=== PATIENT | female | born 1955 | race African-American/Black ===

== ENCOUNTER 2020-05-30 19:51 | Inpatient (IN) | payer BC ==
[~2020-05-30] VITALS: Ht 157.5 cm; Wt 70.8 kg
[2020-05-30] MEDS ORDERED: LORAZEPAM 2MG/ML CPJ ONE (20:04)
[2020-05-30] MEDS ORDERED: PROPOFOL 10MG/ML 100ML 100 ML IV PRN (20:15)
[2020-05-30] MEDS ORDERED: LORAZEPAM 2MG/ML CPJ IV ONE (20:15)
[2020-05-30 20:44] LABS: BASOPHILS % 0.6 % (0.0-2.0); CLARITY URINE CLEAR (CLEAR); COLOR URINE YELLOW (YELLOW); EOSINOPHILS % 0.1 % (0.0-5.0); HEMATOCRIT. 44.1 % (36.0-48.0); HEMOGLOBIN. 14.3 g/dL (12.0-16.0); KETONES URINE TRACE (NEGATIVE); LEUKOCYTE ESTERASE URINE NEGATIVE (NEGATIVE); LYMPHOCYTES % 33.5 % (20.0-50.0); MEAN CORPUSCULAR HEMOGLOBIN 30.7 pg (28.0-32.0); MEAN CORPUSCULAR VOLUME 94.8 fL (81.0-99.0); MEAN PLATELET VOLUME 9.7 fl (7.4-10.4); MONOCYTES % 5.1 % (2.0-8.0); NEUTROPHILS % 60.7 % (40.0-76.0); NITRITE URINE NEGATIVE (NEGATIVE); OCCULT BLOOD URINE NEGATIVE (NEGATIVE); PLATELET 258 x1000/uL (130-400); PROTEIN URINE 2+ (NEGATIVE); RED BLOOD CELL COUNT 4.65 mill/uL (4.2-5.4); SPECIFIC GRAVITY URINE 1.035 (1.005-1.030); UROBILINOGEN URINE 0.2 E.U./dL (0.2-1.0)
[2020-05-30 20:50] LABS: CHLORIDE 104 mEq/L (98-107)
[2020-05-30 20:53] LABS: ETHANOL BLOOD < 10 mg/dL
[2020-05-30 20:56] LABS: *AMPHETAMINES SCREEN URINE NEGATIVE (NEGATIVE); *BARBITURATES SCREEN URINE NEGATIVE (NEGATIVE); *BENZODIAZEPINES SCREEN URINE NEGATIVE (NEGATIVE); *COCAINE SCREEN URINE NEGATIVE (NEGATIVE); CANNABINOID URINE SCREEN NEGATIVE (NEGATIVE)
[2020-05-30 20:57] LABS: METHADONE URINE SCREEN NEGATIVE (NEGATIVE); OPIATES URINE SCREEN NEGATIVE (NEGATIVE); PHENCYCLIDINE URINE SCREEN NEGATIVE (NEGATIVE)
[2020-05-30] MEDS ORDERED: VANCOMYCIN 1 G PREMIX 200 ML IV SCH (22:30)
[2020-05-30] MEDS: ACYCLOVIR INJ 500 MG in DEXT 5% WATER 100 ML IV SCH (22:30)
[2020-05-30] MEDS ORDERED: CEFTRIAXONE 2 G PREMIX 50 ML IV ONE (22:30)
[2020-05-31] VITALS (53 sets, daily range): BP systolic 112–160; BP diastolic 65–92
[2020-05-31 00:32] LABS: BG BASE EXCESS -1.3 mmol/L (-2.0-2.0); BG CARBOXYHEMOGLOBIN 0.2 % (0.5-1.5); BG DEOXYHEMOGLOBIN 0.2 % (0.0-5.0); BG FRACTION INSPIRED OXYGEN 100; BG HCO3 ACT 18.4 mmol/L (22.0-26.0); BG OXYGEN SATURATION 99.8 % (92.0-98.5); BG OXYHEMOGLOBIN 99.6 % (94.0-97.0); BG PCO2 20.3 mmHg (35.0-45.0); BG PH 7.575 (7.350-7.450); BG PO2 331.9 mmHg (75.0-100.0); BG SAMPLE SITE RIGHT RADIAL; BG TIDAL VOLUME(mL) 550 mL; BG TOTAL HEMOGLOBIN 13.7 g/dL (12.0-18.0); BG VENT MODE VENT - A/C; BG VENT RATE 24 set
[2020-05-31] MEDS ORDERED: LEVETIRACETAM 500MG PREMIX 100 ML IV SCH (06:00)
[2020-05-31] MEDS: ACYCLOVIR INJ 500 MG in DEXT 5% WATER 100 ML IV SCH (08:08)
[2020-05-31] MEDS: HEPARIN 5000 UNITS/ML VIAL SUBCUT SCH ×2 (09:00→21:07)
[2020-05-31] MEDS ORDERED: MIDAZOLAM HCL 100 MG in DEXT 5% WATER 80 ML IV PRN (09:15)
[2020-05-31] MEDS: FENTANYL CITRATE/PF 1,000 MCG in SODIUM CHLORIDE 0.9% 80 ML IV PRN (09:30)
[2020-05-31] MEDS ORDERED: ACETAMINOPHEN 325MG TABLET PO PRN (09:30)
[2020-05-31] MEDS ORDERED: ONDANSETRON HCL 4MG/2ML INJ IV PRN (09:30)
[2020-05-31 09:42] LABS: BASOPHILS % 0.3 % (0.0-2.0); EOSINOPHILS % 0.7 % (0.0-5.0); HEMATOCRIT. 40.9 % (36.0-48.0); HEMOGLOBIN. 13.8 g/dL (12.0-16.0); LYMPHOCYTES % 20.3 % (20.0-50.0); MEAN CORPUSCULAR HEMOGLOBIN 30.5 pg (28.0-32.0); MEAN CORPUSCULAR VOLUME 90.1 fL (81.0-99.0); MEAN PLATELET VOLUME 9.3 fl (7.4-10.4); NEUTROPHILS % 71.7 % (40.0-76.0); PLATELET 213 x1000/uL (130-400); RED BLOOD CELL COUNT 4.53 mill/uL (4.2-5.4); RED CELL DISTRIBUTION WIDTH 15.7 % (11.6-14.6)
[2020-05-31 09:43] LABS: CHLORIDE 103 mEq/L (98-107)
[2020-05-31] MEDS: LEVOFLOXACIN 500MG PREMIX 100 ML IV SCH (10:00)
[2020-05-31] MEDS ORDERED: IPRATROPIUM/ALBUTEROL 0.5-3(2.5)MG/3ML NEB HHN PRN (13:15)
[2020-05-31] MEDS: METRONIDAZOLE 500MG TABLET PO SCH ×2 (14:14→21:06)
[2020-05-31] MEDS: METHYLPREDNISOLONE SOD SUCC 40 MG/ML VIAL IV SCH ×2 (14:14→21:06)
[2020-05-31] MEDS: PROPOFOL 10MG/ML 100ML 100 ML IV PRN ×3 (16:55→23:47)
[2020-05-31] MEDS: LEVETIRACETAM 500MG PREMIX 100 ML IV SCH (21:06)
[2020-05-31] MEDS: IPRATROPIUM/ALBUTEROL 0.5-3(2.5)MG/3ML NEB HHN SCH (21:12)
[2020-06-01] VITALS (88 sets, daily range): BP systolic 49–168; BP diastolic 17–113
[2020-06-01] MEDS: IPRATROPIUM/ALBUTEROL 0.5-3(2.5)MG/3ML NEB HHN SCH ×4 (00:53→21:01)
[2020-06-01] MEDS: METRONIDAZOLE 500MG TABLET PO SCH ×3 (05:20→22:05)
[2020-06-01] MEDS: METHYLPREDNISOLONE SOD SUCC 40 MG/ML VIAL IV SCH ×3 (05:20→22:05)
[2020-06-01] MEDS: FENTANYL CITRATE/PF 1,000 MCG in SODIUM CHLORIDE 0.9% 80 ML IV PRN (05:43)
[2020-06-01 05:48] LABS: HEMATOCRIT. 42.7 % (36.0-48.0); HEMOGLOBIN. 14.1 g/dL (12.0-16.0); MEAN CORPUSCULAR HEMOGLOBIN 30.5 pg (28.0-32.0); MEAN CORPUSCULAR VOLUME 92.5 fL (81.0-99.0); PLATELET 183 x1000/uL (130-400); RED BLOOD CELL COUNT 4.61 mill/uL (4.2-5.4); RED CELL DISTRIBUTION WIDTH 15.8 % (11.6-14.6)
[2020-06-01 05:57] LABS: CHLORIDE 103 mEq/L (98-107)
[2020-06-01] MEDS: PROPOFOL 10MG/ML 100ML 100 ML IV PRN (08:27)
[2020-06-01] MEDS: HEPARIN 5000 UNITS/ML VIAL SUBCUT SCH ×2 (10:28→22:07)
[2020-06-01] MEDS: LEVOFLOXACIN 500MG PREMIX 100 ML IV SCH (10:28)
[2020-06-01] MEDS: LEVETIRACETAM 500MG PREMIX 100 ML IV SCH ×2 (10:28→22:04)
[2020-06-01] MEDS ORDERED: POTASSIUM CHLORIDE 20MEQ/PACKET PO NR (12:00)
[2020-06-01 12:13] LABS: PLATELET ESTIMATE NORMAL
[2020-06-01 12:37] LABS: BG BASE EXCESS -5.8 mmol/L (-2.0-2.0); BG CARBOXYHEMOGLOBIN 0.6 % (0.5-1.5); BG DEOXYHEMOGLOBIN 0.8 % (0.0-5.0); BG FRACTION INSPIRED OXYGEN 50; BG HCO3 ACT 19.1 mmol/L (22.0-26.0); BG METHEMOGLOBIN 0.6 % (0.0-1.5); BG OXYGEN SATURATION 99.2 % (92.0-98.5); BG PCO2 35.8 mmHg (35.0-45.0); BG PH 7.345 (7.350-7.450); BG PO2 190.8 mmHg (75.0-100.0); BG PRESSURE SUPPORT 8; BG SAMPLE SITE RIGHT BRACHIAL; BG TOTAL HEMOGLOBIN 14.6 g/dL (12.0-18.0); BG VENT MODE VENT - CPAP
[2020-06-01] MEDS ORDERED: POTASSIUM CHLORIDE INJ 40 MEQ in DEXT 5% WATER 250 ML IV NR (16:00)
[2020-06-02] VITALS (60 sets, daily range): BP systolic 94–149; BP diastolic 44–88
[2020-06-02] MEDS: IPRATROPIUM/ALBUTEROL 0.5-3(2.5)MG/3ML NEB HHN SCH ×4 (01:25→20:20)
[2020-06-02 05:54] LABS: CHLORIDE 107 mEq/L (98-107)
[2020-06-02] MEDS: METHYLPREDNISOLONE SOD SUCC 40 MG/ML VIAL IV SCH ×2 (06:00→13:43)
[2020-06-02] MEDS: METRONIDAZOLE 500MG TABLET PO SCH ×3 (06:00→20:32)
[2020-06-02 06:11] LABS: HEMATOCRIT. 39.8 % (36.0-48.0); HEMOGLOBIN. 13.1 g/dL (12.0-16.0); MEAN CORPUSCULAR HEMOGLOBIN 30.4 pg (28.0-32.0); MEAN CORPUSCULAR VOLUME 92.4 fL (81.0-99.0); MEAN PLATELET VOLUME 9.3 fl (7.4-10.4); PLATELET 189 x1000/uL (130-400); RED CELL DISTRIBUTION WIDTH 16.2 % (11.6-14.6)
[2020-06-02] MEDS: LEVOFLOXACIN 500MG PREMIX 100 ML IV SCH (09:30)
[2020-06-02] MEDS: LEVETIRACETAM 500MG PREMIX 100 ML IV SCH (09:30)
[2020-06-02] MEDS: HEPARIN 5000 UNITS/ML VIAL SUBCUT SCH ×2 (09:30→20:32)
[2020-06-02 10:08] LABS: PLATELET ESTIMATE NORMAL
[2020-06-02] MEDS: LEVETIRACETAM 500MG TABLET PO SCH (20:34)
[2020-06-03] VITALS (10 sets, daily range): BP systolic 99–140; BP diastolic 51–81
[2020-06-03] MEDS: IPRATROPIUM/ALBUTEROL 0.5-3(2.5)MG/3ML NEB HHN SCH ×3 (02:15→14:17)
[2020-06-03] MEDS: METRONIDAZOLE 500MG TABLET PO SCH ×2 (05:26→14:01)
[2020-06-03 06:42] LABS: HEMOGLOBIN. 12.1 g/dL (12.0-16.0); MEAN CORPUSCULAR HEMOGLOBIN 30.9 pg (28.0-32.0); MEAN CORPUSCULAR VOLUME 92.1 fL (81.0-99.0); MEAN PLATELET VOLUME 9.3 fl (7.4-10.4); PLATELET 204 x1000/uL (130-400); RED BLOOD CELL COUNT 3.91 mill/uL (4.2-5.4); RED CELL DISTRIBUTION WIDTH 15.4 % (11.6-14.6)
[2020-06-03 07:03] LABS: CHLORIDE 105 mEq/L (98-107)
[2020-06-03] MEDS ORDERED: METHYLPREDNISOLONE SOD SUCC 40 MG/ML VIAL IV SCH (09:00)
[2020-06-03] MEDS: LEVETIRACETAM 500MG TABLET PO SCH (09:11)
[2020-06-03] MEDS: LEVOFLOXACIN 500MG PREMIX 100 ML IV SCH (09:11)
[2020-06-03] MEDS: HEPARIN 5000 UNITS/ML VIAL SUBCUT SCH (09:14)
[2020-06-03] MEDS ORDERED: TRAZ-251 MT (14:11)
[2020-06-03] MEDS ORDERED: KEPP500 PO (14:11)
[2020-06-03] MEDS ORDERED: METO25TA6 PO (14:12)
[2020-06-03] MEDS ORDERED: METOPROLOL TARTRATE 25MG TABLET PO SCH ×2 (14:15→21:00)
[2020-06-03 16:47] LABS: PLATELET ESTIMATE NORMAL
== END 2020-06-03 17:05 | disposition home or self-care (01) | DRG 871 ==
LOC: ER 19:51 → MICUSO 21:26 → MICUNO 05-31 11:18 → 5EST 06-02 21:30
PROVIDERS: ADMIT Internal Medicine; ATTEND Internal Medicine
PROC: 5A1945Z Respiratory Ventilation, 24-96 Consecutive Hours (ICD-10-PCS; principal; 2020-05-30)
PROC: 0BH17EZ Insertion of Endotracheal Airway into Trachea, Via Natural or Artificial Opening (ICD-10-PCS; 2020-05-30)
DX: A41.9 Sepsis, unspecified organism (principal); J96.01 Acute respiratory failure with hypoxia; J69.0 Pneumonitis due to inhalation of food and vomit; D86.9 Sarcoidosis, unspecified; G40.901 Epilepsy, unspecified, not intractable, with status epilepticus; I10 Essential (primary) hypertension; E87.6 Hypokalemia; G47.00 Insomnia, unspecified; I49.3 Ventricular premature depolarization; G43.909 Migraine, unspecified, not intractable, without status migrainosus; D86.89 Sarcoidosis of other sites; J45.909 Unspecified asthma, uncomplicated; N95.1 Menopausal and female climacteric states; Z79.899 Other long term (current) drug therapy
CPT/HCPCS: 36415; 36600; 71045; 80053; 80305; 80320; 81003; 82164; 82375; 82805; 82962; 83605; 83735; 83880; 84443; 84478; 84484; 85025; 87070; 87077; 93005; 93306; 94002; 94003; 94640; 96365; 97162; 97166; 99285; J0133; J0696; J1644; J1953; J1956; J2060; J2704; J2920; J3010; J3370; J3480; J7050; J7060; G0480

== ENCOUNTER 2020-06-22 01:25 | Inpatient (IN) | payer BC ==
[~2020-06-22] VITALS: Ht 165.1 cm; Wt 76.9 kg
[~2020-06-22 01:25] MED LIST: KEPP500 PO; METO25TA6 PO; TRAZ-251 MT
[2020-06-22] MEDS ORDERED: ETOMIDATE 2MG/ML 10ML VIAL IV ONE ×2 (01:41→02:15)
[2020-06-22] MEDS ORDERED: VECURONIUM BROMIDE 10 MG/VIAL IV ONE (01:41)
[2020-06-22] MEDS ORDERED: ONDANSETRON HCL 4MG/2ML INJ IV STA (02:14)
[2020-06-22] MEDS ORDERED: ACETAMINOPHEN 650MG SUPP PR STA (02:14)
[2020-06-22] MEDS ORDERED: MORPHINE SULFATE 4 MG/ML CPJ (NOT FOR IM USE) IV STA (02:14)
[2020-06-22] MEDS ORDERED: SODIUM CHLORIDE 0.9% 1000ML BAG (SEPSIS BOLUS) IV ONE (02:15)
[2020-06-22] MEDS ORDERED: VANCOMYCIN 1 G PREMIX 200 ML IV ONE (02:15)
[2020-06-22] MEDS ORDERED: LEVETIRACETAM 500MG PREMIX 100 ML IV ONE (02:15)
[2020-06-22] MEDS ORDERED: LORAZEPAM 2MG/ML CPJ IV ONE (02:15)
[2020-06-22] MEDS ORDERED: PROPOFOL 10MG/ML 100ML 100 ML IV ONE ×2 (02:15→07:51)
[2020-06-22] MEDS ORDERED: PIPERACILLIN/TAZ 3.375G PREMIX 50 ML IV ONE (02:15)
[2020-06-22 03:04] LABS: HEMATOCRIT. 44.7 % (36.0-48.0); MEAN CORPUSCULAR HEMOGLOBIN 30.5 pg (28.0-32.0); PLATELET 166 x1000/uL (130-400); RED CELL DISTRIBUTION WIDTH 14.7 % (11.6-14.6)
[2020-06-22 03:10] LABS: PROTHROMBIN TIME 10.6 sec (9.6-11.0)
[2020-06-22 03:11] LABS: CLARITY URINE CLEAR (CLEAR); COLOR URINE YELLOW (YELLOW); KETONES URINE TRACE (NEGATIVE); LEUKOCYTE ESTERASE URINE NEGATIVE (NEGATIVE); NITRITE URINE NEGATIVE (NEGATIVE); OCCULT BLOOD URINE NEGATIVE (NEGATIVE); PROTEIN URINE NEGATIVE (NEGATIVE); SPECIFIC GRAVITY URINE 1.031 (1.005-1.030); UROBILINOGEN URINE 0.2 E.U./dL (0.2-1.0)
[2020-06-22 03:17] LABS: CHLORIDE 89 mEq/L (98-107)
[2020-06-22 03:25] LABS: CANNABINOID URINE SCREEN NEGATIVE (NEGATIVE); METHADONE URINE SCREEN NEGATIVE (NEGATIVE); OPIATES URINE SCREEN NEGATIVE (NEGATIVE); PHENCYCLIDINE URINE SCREEN NEGATIVE (NEGATIVE)
[2020-06-22 03:27] LABS: *AMPHETAMINES SCREEN URINE NEGATIVE (NEGATIVE); *BARBITURATES SCREEN URINE NEGATIVE (NEGATIVE); *BENZODIAZEPINES SCREEN URINE PRESUMTIVE POSITIVE (NEGATIVE); *COCAINE SCREEN URINE NEGATIVE (NEGATIVE)
[2020-06-22 03:53] LABS: BG CARBOXYHEMOGLOBIN 0.3 % (0.5-1.5); BG DEOXYHEMOGLOBIN 0.6 % (0.0-5.0); BG FRACTION INSPIRED OXYGEN 100; BG HCO3 ACT 17.5 mmol/L (22.0-26.0); BG METHEMOGLOBIN 0.5 % (0.0-1.5); BG OXYGEN SATURATION 99.4 % (92.0-98.5); BG OXYHEMOGLOBIN 98.6 % (94.0-97.0); BG PCO2 32.7 mmHg (35.0-45.0); BG PH 7.347 (7.350-7.450); BG PIP 24 cmH2O; BG PO2 347.1 mmHg (75.0-100.0); BG SAMPLE SITE RIGHT BRACHIAL; BG TIDAL VOLUME(mL) 400 mL; BG VENT MODE VENT - A/C; BG VENT RATE 16 set
[2020-06-22] MEDS ORDERED: SODIUM CHLORIDE 0.9% 1,000 ML IV ONE (03:56)
[2020-06-22] MEDS ORDERED: INSULIN REGULAR (DRIP) 100 UNITS in SODIUM CHLORIDE 0.9% 99 ML IV SCH (04:00)
[2020-06-22 05:09] LABS: PLATELET ESTIMATE NORMAL
[2020-06-22] MEDS: SODIUM CHLORIDE 0.45% 1,000 ML IV SCH ×2 (07:40→17:40)
[2020-06-22] MEDS ORDERED: DIPHENHYDRAMINE 50MG/ML VIAL IV PRN (07:45)
[2020-06-22] MEDS ORDERED: GUAIFENESIN 200MG/10ML SUGAR FREE UDC PO PRN (07:45)
[2020-06-22] MEDS ORDERED: LORAZEPAM 2MG/ML CPJ IV PRN (07:45)
[2020-06-22] MEDS ORDERED: ONDANSETRON HCL 4MG/2ML INJ IV PRN (07:45)
[2020-06-22] MEDS ORDERED: HYDRALAZINE 20MG/ML VIAL IV PRN (07:45)
[2020-06-22] MEDS ORDERED: IPRATROPIUM/ALBUTEROL 0.5-3(2.5)MG/3ML NEB HHN PRN (07:45)
[2020-06-22] MEDS ORDERED: DOCUSATE SODIUM 100MG CAPSULE PO PRN (07:45)
[2020-06-22] MEDS ORDERED: HYDROCODONE/ACETAMINOPHEN 10/325MG TABLET PO PRN (07:45)
[2020-06-22] MEDS ORDERED: CLONIDINE 0.1MG TABLET PO PRN (07:45)
[2020-06-22] MEDS ORDERED: MORPHINE SULFATE 2 MG/ML CPJ (NOT FOR IM USE) IV PRN (07:45)
[2020-06-22] MEDS ORDERED: DEXTROSE 50% WATER 50ML SYRINGE IV PRN ×2 (07:45)
[2020-06-22] MEDS ORDERED: ACETAMINOPHEN 325MG TABLET PO PRN (07:45)
[2020-06-22] MEDS ORDERED: MAGNESIUM/ALUMINUM HYDROXIDE/SIMETHICONE 30ML UDC PO PRN (07:45)
[2020-06-22] MEDS: BLOOD SUGAR DIAGNOSTIC STRIP TEST SCH ×10 (09:00→18:00)
[2020-06-22] MEDS ORDERED: LEVOFLOXACIN 500MG PREMIX 100 ML IV NR (09:00)
[2020-06-22] MEDS: ENOXAPARIN 40MG/0.4ML SYR SUBCUT SCH (09:20)
[2020-06-22 09:27] LABS: CHLORIDE 111 mEq/L (98-107)
[2020-06-22] MEDS ORDERED: POTASSIUM CHLORIDE INJ 40 MEQ in DEXT 5% WATER 250 ML IV ONE (10:00)
[2020-06-22] MEDS: PROPOFOL 10MG/ML 100ML 100 ML IV PRN (13:58)
[2020-06-22] MEDS: SODIUM CHLORIDE 0.9% INJ 3ML FLUSH IVF SCH (14:00)
[2020-06-22] MEDS ORDERED: KCL 20MEQ/100ML PREMIX 100 ML IV NR (14:00)
[2020-06-22] MEDS: PIPERACILLIN/TAZ 3.375G PREMIX 50 ML IV SCH ×2 (17:00→23:17)
[2020-06-22] MEDS ORDERED: LEVETIRACETAM 500MG PREMIX 100 ML IV SCH (21:00)
[2020-06-22] MEDS ORDERED: METRONIDAZOLE 500MG TABLET PO SCH (22:00)
[2020-06-23] VITALS (56 sets, daily range): BP systolic 95–156; BP diastolic 58–86
[2020-06-23] MEDS ORDERED: POTASSIUM CHLORIDE INJ 40 MEQ in DEXT 5% WATER 500 ML IV SCH (00:15)
[2020-06-23] MEDS: IPRATROPIUM/ALBUTEROL 0.5-3(2.5)MG/3ML NEB HHN SCH ×3 (01:45→20:16)
[2020-06-23 04:31] LABS: CHLORIDE 115 mEq/L (98-107)
[2020-06-23 04:34] LABS: BASOPHILS % 0.4 % (0.0-2.0); EOSINOPHILS % 0.2 % (0.0-5.0); HEMATOCRIT. 39.6 % (36.0-48.0); HEMOGLOBIN. 13.1 g/dL (12.0-16.0); LYMPHOCYTES % 16.1 % (20.0-50.0); MEAN CORPUSCULAR HEMOGLOBIN 30.3 pg (28.0-32.0); MEAN CORPUSCULAR VOLUME 91.3 fL (81.0-99.0); MEAN PLATELET VOLUME 10.2 fl (7.4-10.4); NEUTROPHILS % 76.3 % (40.0-76.0); PLATELET 136 x1000/uL (130-400); RED BLOOD CELL COUNT 4.33 mill/uL (4.2-5.4); RED CELL DISTRIBUTION WIDTH 15.2 % (11.6-14.6)
[2020-06-23 04:40] LABS: CREATINE KINASE 96 IU/L (26-192)
[2020-06-23] MEDS: BLOOD SUGAR DIAGNOSTIC STRIP TEST SCH ×4 (07:53→21:41)
[2020-06-23] MEDS: SODIUM CHLORIDE 0.9% INJ 3ML FLUSH IVF SCH ×4 (07:53→21:11)
[2020-06-23] MEDS ORDERED: DEXTROSE 50% WATER 50ML SYRINGE IV PRN (08:00)
[2020-06-23] MEDS: INSULIN LISPRO 100 UNITS/ML SUBCUT SCH ×4 (08:20→21:39)
[2020-06-23] MEDS ORDERED: LEVOFLOXACIN 250MG PREMIX 50 ML IV SCH (09:00)
[2020-06-23 09:14] LABS: BG BASE EXCESS -1.3 mmol/L (-2.0-2.0); BG CARBOXYHEMOGLOBIN 0.3 % (0.5-1.5); BG DEOXYHEMOGLOBIN 0.9 % (0.0-5.0); BG FRACTION INSPIRED OXYGEN 40; BG HCO3 ACT 21.5 mmol/L (22.0-26.0); BG METHEMOGLOBIN 0.3 % (0.0-1.5); BG OXYGEN SATURATION 99.1 % (92.0-98.5); BG OXYHEMOGLOBIN 98.5 % (94.0-97.0); BG PCO2 30.9 mmHg (35.0-45.0); BG PH 7.461 (7.350-7.450); BG PO2 177.3 mmHg (75.0-100.0); BG SAMPLE SITE RIGHT RADIAL; BG TIDAL VOLUME(mL) 450 mL; BG TOTAL HEMOGLOBIN 13.4 g/dL (12.0-18.0); BG VENT MODE VENT - A/C; BG VENT RATE 14 set
[2020-06-23] MEDS: PIPERACILLIN/TAZOBACTAM 3.375 G in DEXT 5% WATER 100 ML IV SCH ×4 (09:25→23:02)
[2020-06-23] MEDS: ENOXAPARIN 40MG/0.4ML SYR SUBCUT SCH (09:26)
[2020-06-23] MEDS: SODIUM CHLORIDE 0.9% 1,000 ML IV SCH ×2 (09:27→18:03)
[2020-06-23] MEDS: PROPOFOL 10MG/ML 100ML 100 ML IV PRN ×4 (09:27→21:17)
[2020-06-23] MEDS ORDERED: LEVETIRACETAM 500MG PREMIX 100 ML IV SCH (12:00)
[2020-06-23] MEDS: PANTOPRAZOLE SODIUM 40 MG/VIAL IV SCH (14:14)
[2020-06-23] MEDS: LAMOTRIGINE 25MG TABLET PO SCH (15:52)
[2020-06-23] MEDS: LEVETIRACETAM 1,000 MG in SODIUM CHLORIDE 0.9% 100 ML IV SCH (21:10)
[2020-06-24] VITALS (80 sets, daily range): BP systolic 113–164; BP diastolic 54–97
[2020-06-24] MEDS ORDERED: INSULIN REGULAR (DRIP) 100 UNITS in SODIUM CHLORIDE 0.9% 99 ML IV SCH (00:15)
[2020-06-24] MEDS: IPRATROPIUM/ALBUTEROL 0.5-3(2.5)MG/3ML NEB HHN SCH ×4 (02:06→21:20)
[2020-06-24] MEDS: PROPOFOL 10MG/ML 100ML 100 ML IV PRN (03:35)
[2020-06-24] MEDS: PIPERACILLIN/TAZOBACTAM 3.375 G in DEXT 5% WATER 100 ML IV SCH ×2 (05:10→12:18)
[2020-06-24] MEDS: SODIUM CHLORIDE 0.9% INJ 3ML FLUSH IVF SCH ×3 (05:10→21:11)
[2020-06-24] MEDS: SODIUM CHLORIDE 0.9% 1,000 ML IV SCH ×2 (05:10→13:52)
[2020-06-24 06:06] LABS: BASOPHILS % 0.2 % (0.0-2.0); EOSINOPHILS % 0.6 % (0.0-5.0); HEMATOCRIT. 34.4 % (36.0-48.0); HEMOGLOBIN. 11.5 g/dL (12.0-16.0); LYMPHOCYTES % 12.1 % (20.0-50.0); MEAN CORPUSCULAR HEMOGLOBIN 30.8 pg (28.0-32.0); MEAN CORPUSCULAR VOLUME 91.9 fL (81.0-99.0); MEAN PLATELET VOLUME 10.2 fl (7.4-10.4); MONOCYTES % 6.9 % (2.0-8.0); NEUTROPHILS % 80.2 % (40.0-76.0); PLATELET 104 x1000/uL (130-400); RED BLOOD CELL COUNT 3.74 mill/uL (4.2-5.4); RED CELL DISTRIBUTION WIDTH 15.4 % (11.6-14.6)
[2020-06-24 06:10] LABS: CHLORIDE 115 mEq/L (98-107)
[2020-06-24] MEDS: BLOOD SUGAR DIAGNOSTIC STRIP TEST SCH ×4 (07:56→21:11)
[2020-06-24] MEDS ORDERED: POTASSIUM CHLORIDE INJ 40 MEQ in DEXT 5% WATER 250 ML IV ONE (08:00)
[2020-06-24 08:27] LABS: BG BASE EXCESS -5.1 mmol/L (-2.0-2.0); BG CARBOXYHEMOGLOBIN 0.4 % (0.5-1.5); BG DEOXYHEMOGLOBIN 0.7 % (0.0-5.0); BG FRACTION INSPIRED OXYGEN 40; BG HCO3 ACT 18.5 mmol/L (22.0-26.0); BG METHEMOGLOBIN 0.3 % (0.0-1.5); BG OXYGEN SATURATION 99.3 % (92.0-98.5); BG OXYHEMOGLOBIN 98.6 % (94.0-97.0); BG PCO2 30.3 mmHg (35.0-45.0); BG PH 7.404 (7.350-7.450); BG PO2 243.1 mmHg (75.0-100.0); BG SAMPLE SITE RIGHT RADIAL; BG TIDAL VOLUME(mL) 450 mL; BG TOTAL HEMOGLOBIN 12.2 g/dL (12.0-18.0); BG VENT MODE VENT - A/C; BG VENT RATE 14 set
[2020-06-24] MEDS ORDERED: POTASSIUM CHLORIDE INJ 40 MEQ in DEXT 5% WATER 250 ML IV NR (09:00)
[2020-06-24] MEDS: ENOXAPARIN 40MG/0.4ML SYR SUBCUT SCH (10:01)
[2020-06-24] MEDS: LAMOTRIGINE 25MG TABLET PO SCH (10:01)
[2020-06-24] MEDS: PANTOPRAZOLE SODIUM 40 MG/VIAL IV SCH (10:01)
[2020-06-24] MEDS: INSULIN LISPRO 100 UNITS/ML SUBCUT SCH ×4 (10:04→21:26)
[2020-06-24] MEDS: LEVETIRACETAM 1,000 MG in SODIUM CHLORIDE 0.9% 100 ML IV SCH ×2 (10:22→21:11)
[2020-06-24 11:36] LABS: BG CARBOXYHEMOGLOBIN 0.3 % (0.5-1.5); BG DEOXYHEMOGLOBIN 1.2 % (0.0-5.0); BG FRACTION INSPIRED OXYGEN 40; BG HCO3 ACT 20.1 mmol/L (22.0-26.0); BG METHEMOGLOBIN 0.3 % (0.0-1.5); BG OXYGEN SATURATION 98.8 % (92.0-98.5); BG OXYHEMOGLOBIN 98.2 % (94.0-97.0); BG PCO2 37.7 mmHg (35.0-45.0); BG PH 7.345 (7.350-7.450); BG PO2 155.9 mmHg (75.0-100.0); BG PRESSURE SUPPORT 8; BG SAMPLE SITE RIGHT RADIAL; BG TOTAL HEMOGLOBIN 12.2 g/dL (12.0-18.0); BG VENT MODE VENT - CPAP
[2020-06-24] MEDS ORDERED: RACEPINEPHRINE 2.25% 0.5ML NEB VIAL HHN PRN (14:00)
[2020-06-25] VITALS (62 sets, daily range): BP systolic 103–175; BP diastolic 37–151
[2020-06-25] MEDS: SODIUM CHLORIDE 0.9% 1,000 ML IV SCH ×3 (01:22→20:35)
[2020-06-25] MEDS: IPRATROPIUM/ALBUTEROL 0.5-3(2.5)MG/3ML NEB HHN SCH ×4 (03:25→20:28)
[2020-06-25] MEDS: SODIUM CHLORIDE 0.9% INJ 3ML FLUSH IVF SCH ×3 (05:03→22:04)
[2020-06-25 06:04] LABS: BASOPHILS % 0.2 % (0.0-2.0); EOSINOPHILS % 1.3 % (0.0-5.0); HEMATOCRIT. 33.8 % (36.0-48.0); HEMOGLOBIN. 11.4 g/dL (12.0-16.0); LYMPHOCYTES % 16.7 % (20.0-50.0); MEAN CORPUSCULAR HEMOGLOBIN 31.1 pg (28.0-32.0); MEAN CORPUSCULAR VOLUME 92.3 fL (81.0-99.0); MEAN PLATELET VOLUME 10.5 fl (7.4-10.4); MONOCYTES % 6.9 % (2.0-8.0); NEUTROPHILS % 74.9 % (40.0-76.0); PLATELET 95 x1000/uL (130-400); RED BLOOD CELL COUNT 3.67 mill/uL (4.2-5.4); RED CELL DISTRIBUTION WIDTH 15.4 % (11.6-14.6)
[2020-06-25 06:14] LABS: CHLORIDE 119 mEq/L (98-107)
[2020-06-25] MEDS: BLOOD SUGAR DIAGNOSTIC STRIP TEST SCH ×4 (08:27→20:35)
[2020-06-25] MEDS: LAMOTRIGINE 25MG TABLET PO SCH (08:41)
[2020-06-25] MEDS: PANTOPRAZOLE SODIUM 40 MG/VIAL IV SCH (08:41)
[2020-06-25] MEDS: INSULIN LISPRO 100 UNITS/ML SUBCUT SCH ×4 (08:42→20:48)
[2020-06-25] MEDS: ENOXAPARIN 40MG/0.4ML SYR SUBCUT SCH (09:00)
[2020-06-25] MEDS: LEVETIRACETAM 1,000 MG in SODIUM CHLORIDE 0.9% 100 ML IV SCH ×2 (10:35→22:03)
[2020-06-26] VITALS (15 sets, daily range): BP systolic 115–152; BP diastolic 50–87
[2020-06-26] MEDS: IPRATROPIUM/ALBUTEROL 0.5-3(2.5)MG/3ML NEB HHN SCH ×3 (02:38→16:32)
[2020-06-26] MEDS: SODIUM CHLORIDE 0.9% INJ 3ML FLUSH IVF SCH ×2 (05:38→14:00)
[2020-06-26] MEDS: SODIUM CHLORIDE 0.9% 1,000 ML IV SCH (06:02)
[2020-06-26 06:11] LABS: HEMATOCRIT. 30.7 % (36.0-48.0); HEMOGLOBIN. 10.5 g/dL (12.0-16.0); MEAN CORPUSCULAR VOLUME 90.8 fL (81.0-99.0); MEAN PLATELET VOLUME 9.8 fl (7.4-10.4); PLATELET 93 x1000/uL (130-400); RED BLOOD CELL COUNT 3.38 mill/uL (4.2-5.4); RED CELL DISTRIBUTION WIDTH 15.3 % (11.6-14.6)
[2020-06-26 06:53] LABS: CHLORIDE 116 mEq/L (98-107)
[2020-06-26] MEDS: BLOOD SUGAR DIAGNOSTIC STRIP TEST SCH ×2 (07:50→12:24)
[2020-06-26] MEDS: INSULIN LISPRO 100 UNITS/ML SUBCUT SCH ×2 (08:20→12:29)
[2020-06-26] MEDS ORDERED: POTASSIUM CHLORIDE INJ 40 MEQ in DEXT 5% WATER 250 ML IV NR (08:30)
[2020-06-26] MEDS: ENOXAPARIN 40MG/0.4ML SYR SUBCUT SCH (09:00)
[2020-06-26] MEDS: PANTOPRAZOLE SODIUM 40 MG/VIAL IV SCH (09:05)
[2020-06-26] MEDS: LAMOTRIGINE 25MG TABLET PO SCH (09:06)
[2020-06-26] MEDS: LEVETIRACETAM 1,000 MG in SODIUM CHLORIDE 0.9% 100 ML IV SCH (09:06)
[2020-06-26] MEDS ORDERED: SODIUM CHLORIDE 0.9% 1,000 ML IV SCH (11:00)
[2020-06-26 12:04] LABS: PLATELET ESTIMATE DECREASED
== END 2020-06-26 18:35 | disposition home or self-care (01) | DRG 871 ==
LOC: ER 01:25 → MICUSO 05:00 → EDBEDREQ 05:16 → EDBEDREQTM 05:16 → EDBEDREQ 06:13 → CVICU 06-23 07:34 → 5EST 06-26 10:11
PROVIDERS: ADMIT Internal Medicine; ATTEND Internal Medicine
PROC: 5A1945Z Respiratory Ventilation, 24-96 Consecutive Hours (ICD-10-PCS; principal; 2020-06-22)
PROC: 02HV33Z Insertion of Infusion Device into Superior Vena Cava, Percutaneous Approach (ICD-10-PCS; 2020-06-22)
PROC: B548ZZA Ultrasonography of Superior Vena Cava, Guidance (ICD-10-PCS; 2020-06-22)
PROC: 0BH17EZ Insertion of Endotracheal Airway into Trachea, Via Natural or Artificial Opening (ICD-10-PCS; 2020-06-22)
PROC: 4A00X4Z Measurement of Central Nervous Electrical Activity, External Approach (ICD-10-PCS; 2020-06-26)
DX: A41.9 Sepsis, unspecified organism (principal); J96.00 Acute respiratory failure, unspecified whether with hypoxia or hypercapnia; J69.0 Pneumonitis due to inhalation of food and vomit; E11.01 Type 2 diabetes mellitus with hyperosmolarity with coma; E87.1 Hypo-osmolality and hyponatremia; E87.2 Acidosis; N17.9 Acute kidney failure, unspecified; G40.901 Epilepsy, unspecified, not intractable, with status epilepticus; E86.0 Dehydration; I10 Essential (primary) hypertension; E87.6 Hypokalemia; J45.909 Unspecified asthma, uncomplicated; D72.810 Lymphocytopenia; Z20.828 Contact with and (suspected) exposure to other viral communicable diseases; Z85.841 Personal history of malignant neoplasm of brain; Z79.899 Other long term (current) drug therapy
CPT/HCPCS: 36415; 36600; 71045; 80048; 80053; 80305; 81003; 82010; 82375; 82550; 82805; 82962; 83036; 83605; 83735; 83930; 84145; 84478; 84484; 85025; 87070; 87106; 87635; 92610; 93005; 94002; 94003; 94640; 95816; 97162; 97166; 97530; 99291; C9113; J0360; J1650; J1815; J1953; J1956; J2060; J2270; J2405; J2543; J2704; J3370; J3480; J3490; J7030; J7050; J7060; C9803-CS